=== PATIENT | female | born 1945 | race Caucasian/White ===

== ENCOUNTER 2016-09-18 07:15 | Emergency (ER) | payer MEDICARE, BC ==
[2016-09-18 07:48] VITALS: TEMP 97.4
[2016-09-18 11:40] VITALS: BP 150/72; PULSE 67; RESP 18; O2SAT 98
== END 2016-09-18 08:35 | disposition home or self-care (01) | DRG 880 ==
LOC: ED 07:15
DX: F41.9 Anxiety disorder, unspecified (principal)
CPT/HCPCS: 99282; 99283

== ENCOUNTER 2016-11-28 16:34 | Outpatient (CLI) | payer MEDICARE, BC ==
[2016-09-18 11:40] VITALS: O2SAT 98
== END 2016-11-28 16:35 | disposition home or self-care (01) | DRG 554 ==
LOC: CONVCARE 16:34
PROVIDERS: ATTEND Orthopaedic Surgery
DX: M17.11 Unilateral primary osteoarthritis, right knee (principal)
CPT/HCPCS: 73562

== ENCOUNTER 2016-12-05 05:26 | Inpatient (IN) | payer MEDICARE, BC ==
[2016-12-05] MEDS ORDERED: LACTATED RINGERS 1,000 ML IV ONE (06:00)
[2016-12-05] MEDS: SCOPOLAMINE 1.5MG PATCH TD SCH (06:22)
[2016-12-05] MEDS ORDERED: SODIUM CHLORIDE 20 ML 40 ML ONE (06:49)
[2016-12-05] MEDS ORDERED: LACTATED RINGERS 1,000 ML IV SCH (07:00)
[2016-12-05] MEDS ORDERED: METOCLOPRAMIDE HYDROCHLORIDE 5 MG/ML SOL ONE (07:24)
[2016-12-05] MEDS ORDERED: MORPHINE SULFATE 0.5 MG/ML SOL ONE (07:24)
[2016-12-05] MEDS ORDERED: DEXAMETHASONE 20 MG/5 ML (4 MG/ML SOL) ONE (07:24)
[2016-12-05] MEDS ORDERED: ONDANSETRON HCL 4 MG/2 ML SOL ONE (07:24)
[2016-12-05] MEDS ORDERED: PROPOFOL 500 MG/50 ML EMU IV ONE (07:24)
[2016-12-05] MEDS ORDERED: LIDOCAINE HCL 1% MPF SOL ONE (07:24)
[2016-12-05] MEDS ORDERED: MIDAZOLAM 2 MG/2 ML SOL ONE (07:24)
[2016-12-05] MEDS ORDERED: KETAMINE HYDROCHLORIDE 50 MG/ML SOL ONE (07:28)
[2016-12-05] MEDS ORDERED: GLYCOPYRROLATE 0.2 MG/ML SOL ONE (08:22)
[2016-12-05] MEDS: CEFAZOLIN SODIUM 1 GM PDS ONE ×2 (08:25→08:42)
[2016-12-05] MEDS ORDERED: EPHEDRINE SULFATE 50 MG/ML SOL ONE (08:36)
[2016-12-05] MEDS: BUPIVACAINE LIPOSOME 20 ML SUS ONE ×2 (09:09→09:42)
[2016-12-05] MEDS ORDERED: SODIUM CHLORIDE 0.9% FLUSH 10 ML SOL IV ONE ×2 (09:09→09:42)
[2016-12-05] MEDS ORDERED: PROPOFOL 10 MG/ML EMU IV ONE ×2 (09:28→10:03)
[2016-12-05] MEDS: TRANEXAMIC ACID 100 MG/ML SOL ONE ×2 (09:44→10:03)
[2016-12-05] MEDS ORDERED: ONDANSETRON 4 MG ODT BU PRN (09:52)
[2016-12-05] MEDS ORDERED: BISACODYL 10 MG SUP PR PRN (09:52)
[2016-12-05] MEDS ORDERED: MAGNESIUM HYDROXIDE 30 ML SUS PO PRN (09:52)
[2016-12-05] MEDS ORDERED: MORPHINE SULFATE 10 MG/ML SOL IM PRN (09:52)
[2016-12-05] MEDS ORDERED: FLEET ENEMA PR PRN (09:52)
[2016-12-05] MEDS ORDERED: DIPHENHYDRAMINE 50 MG/ML SOL IV PRN (09:52)
[2016-12-05] MEDS ORDERED: SODIUM CHLORIDE 0.9% 500 ML 500 ML IV PRN (09:52)
[2016-12-05] MEDS ORDERED: ONDANSETRON HCL 4 MG/2 ML SOL IV PRN (09:52)
[2016-12-05] MEDS ORDERED: ALBUTEROL HFA 60 PUFF/INHALER INH PRN (11:00)
[2016-12-05] MEDS: SODIUM CHLORIDE 0.9% FLUSH 10 ML SOL IV SCH ×2 (12:14→19:25)
[2016-12-05] MEDS: DEXTROSE/SALINE 0.45% 1,000 ML IV SCH ×2 (12:28→22:23)
[2016-12-05] MEDS: ACETAMINOPHEN 500 MG 500 MG TAB PO SCH ×3 (12:29→20:25)
[2016-12-05] MEDS: NICOTINE 7 MG PATCH TD SCH (14:32)
[2016-12-05] MEDS: CEFAZOLIN (PREMIX) 1 GM 1 GM/50 ML SOL IV SCH (15:42)
[2016-12-05] MEDS: OXYCODONE HYDROCHLORIDE 5 MG TAB PO PRN ×2 (16:44→21:48)
[2016-12-05] MEDS: HYDRALAZINE HYDROCHLORIDE 10 MG TAB PO SCH (20:24)
[2016-12-05] MEDS: SIMVASTATIN 20 MG TAB PO SCH (20:25)
[2016-12-05] MEDS: SERTRALINE HYDROCHLORIDE 50 MG TAB PO SCH (20:25)
[2016-12-05] MEDS: SENNOSIDES A AND B 8.6 MG TAB PO SCH (20:25)
[2016-12-06] MEDS: CEFAZOLIN (PREMIX) 1 GM 1 GM/50 ML SOL IV SCH (00:06)
[2016-12-06] MEDS: SODIUM CHLORIDE 0.9% FLUSH 10 ML SOL IV SCH ×3 (01:17→17:58)
[2016-12-06] MEDS: OXYCODONE HYDROCHLORIDE 5 MG TAB PO PRN ×2 (04:02→05:58)
[2016-12-06 07:37] LABS: MEAN CORPUSCULAR HGB CONC 36.8 gm/dl (32.0-36.0)
[2016-12-06] MEDS ORDERED: HYDROXYZINE PAMOATE 25 MG CAPSULE PO PRN (08:09)
[2016-12-06] MEDS: DEXTROSE/SALINE 0.45% 1,000 ML IV SCH (08:52)
[2016-12-06] MEDS: APAP/HYDROCODONE 325/5 TAB PO PRN ×4 (08:52→21:31)
[2016-12-06] MEDS: LOSARTAN POTASSIUM 50 MG TAB PO SCH (08:52)
[2016-12-06] MEDS: POTASSIUM CHLORIDE 10 MEQ TER PO SCH (08:53)
[2016-12-06] MEDS: HYDROCHLOROTHIAZIDE 25 MG TAB PO SCH (08:53)
[2016-12-06] MEDS: MULTIVITAMIN2 1 EA TAB PO SCH (08:53)
[2016-12-06] MEDS: CALCIUM CARBONATE 500 MG TAB PO SCH (08:53)
[2016-12-06] MEDS: PANTOPRAZOLE SODIUM 40 MG ECT PO SCH (08:53)
[2016-12-06] MEDS: CYANOCOBALAMIN 1000 MCG TAB PO SCH (08:53)
[2016-12-06] MEDS: CHOLECALCIFEROL 1,000 IU TAB PO SCH (08:54)
[2016-12-06] MEDS ORDERED: RIVAROXABAN 10 MG TAB PO SCH (09:00)
[2016-12-06] MEDS: TRIAMCINOLONE 0.1% CREAM CRE TOP SCH ×3 (09:05→21:28)
[2016-12-06] MEDS: HYDRALAZINE HYDROCHLORIDE 10 MG TAB PO SCH ×2 (09:05→21:27)
[2016-12-06] MEDS: DIAZEPAM 5 MG TAB PO PRN ×2 (10:41→18:01)
[2016-12-06] MEDS: NICOTINE 7 MG PATCH TD SCH (13:02)
[2016-12-06] MEDS: ALUMINUM/MAGNESIUM 30 ML SUS PO PRN ×2 (14:46→18:01)
[2016-12-06] MEDS: SENNOSIDES A AND B 8.6 MG TAB PO SCH (21:29)
[2016-12-06] MEDS: SERTRALINE HYDROCHLORIDE 50 MG TAB PO SCH (21:30)
[2016-12-06] MEDS: SIMVASTATIN 20 MG TAB PO SCH (21:30)
[2016-12-07] MEDS: SODIUM CHLORIDE 0.9% FLUSH 10 ML SOL IV SCH ×4 (03:00→18:51)
[2016-12-07] MEDS: APAP/HYDROCODONE 325/5 TAB PO PRN ×4 (03:25→20:30)
[2016-12-07] MEDS: DIAZEPAM 5 MG TAB PO PRN ×2 (06:41→14:09)
[2016-12-07] MEDS: HYDROMORPHONE 1 MG/ML SYRINGE IV PRN (07:17)
[2016-12-07 07:22] LABS: MEAN CORPUSCULAR HGB CONC 38.3 gm/dl (32.0-36.0)
[2016-12-07 07:34] LABS: POTASSIUM 3.3 mMol/L (3.5-5.1)
[2016-12-07] MEDS: HYDRALAZINE HYDROCHLORIDE 10 MG TAB PO SCH ×2 (08:49→20:30)
[2016-12-07] MEDS: LOSARTAN POTASSIUM 50 MG TAB PO SCH (08:50)
[2016-12-07] MEDS: CALCIUM CARBONATE 500 MG TAB PO SCH (08:51)
[2016-12-07] MEDS: TRIAMCINOLONE 0.1% CREAM CRE TOP SCH ×3 (08:51→20:31)
[2016-12-07] MEDS: CYANOCOBALAMIN 1000 MCG TAB PO SCH (08:52)
[2016-12-07] MEDS: PANTOPRAZOLE SODIUM 40 MG ECT PO SCH (08:52)
[2016-12-07] MEDS: MULTIVITAMIN2 1 EA TAB PO SCH (08:52)
[2016-12-07] MEDS: CHOLECALCIFEROL 1,000 IU TAB PO SCH (08:52)
[2016-12-07] MEDS: HYDROCHLOROTHIAZIDE 25 MG TAB PO SCH (08:55)
[2016-12-07] MEDS: POTASSIUM CHLORIDE 10 MEQ TER PO SCH ×3 (08:55→12:26)
[2016-12-07 10:12] LABS: UNIT TYPE O POSITIVE
[2016-12-07 10:13] LABS: UNIT TYPE O POSITIVE
[2016-12-07 10:14] LABS: UNIT TYPE O POSITIVE
[2016-12-07 10:15] LABS: UNIT TYPE O POSITIVE
[2016-12-07] MEDS ORDERED: ALBUTEROL NEB SOL 2.5MG/3ML 1 VIAL SOL NEB PRN (13:35)
[2016-12-07] MEDS: NICOTINE 7 MG PATCH TD SCH (14:10)
[2016-12-07] MEDS: ALBUTEROL/IPRATROPIUM 1 VIAL SOL INH SCH ×2 (14:29→18:51)
[2016-12-07 14:50] LABS: APPEARANCE,URINE Clear; BILIRUBIN,URINE NEGATIVE (NEGATIVE); COLOR,URINE Light yellow; GLUCOSE, URINE (UA) NEGATIVE (NEGATIVE); KETONES,URINE NEGATIVE (NEGATIVE); LEUKOCYTE ESTERASE ,URINE NEGATIVE (NEGATIVE); NITRATE,URINE NEGATIVE (NEGATIVE); OCCULT BLOOD,URINE 1+ (NEG-TRACE); UROBILINOGEN,URINE 0.2 (0.2-1.0 EU)
[2016-12-07 15:00] LABS: RBC,URINE 0-4 (0-3AV/HPF); WBC,URINE 0-2 (0-5AV/HPF)
[2016-12-07] MEDS ORDERED: FUROSEMIDE 20 MG TAB ONE (16:17)
[2016-12-07] MEDS ORDERED: FUROSEMIDE 20 MG TAB PO ONE (16:30)
[2016-12-07] MEDS: SENNOSIDES A AND B 8.6 MG TAB PO SCH (20:32)
[2016-12-07] MEDS: SIMVASTATIN 20 MG TAB PO SCH (20:32)
[2016-12-07] MEDS: SERTRALINE HYDROCHLORIDE 50 MG TAB PO SCH (20:33)
[2016-12-08] MEDS: ALBUTEROL/IPRATROPIUM 1 VIAL SOL INH SCH ×5 (00:05→20:34)
[2016-12-08] MEDS: APAP/HYDROCODONE 325/5 TAB PO PRN ×4 (00:15→20:35)
[2016-12-08] MEDS: SODIUM CHLORIDE 0.9% FLUSH 10 ML SOL IV SCH ×3 (05:27→20:10)
[2016-12-08] MEDS: SCOPOLAMINE 1.5MG PATCH TD SCH (06:17)
[2016-12-08] MEDS ORDERED: SODIUM CHLORIDE 20 ML 40 ML ONE (06:45)
[2016-12-08] MEDS ORDERED: BUPIVACAINE LIPOSOME 20 ML SUS ONE (06:45)
[2016-12-08] MEDS ORDERED: TRANEXAMIC ACID 100 MG/ML SOL ONE (06:45)
[2016-12-08 06:58] LABS: CALCIUM 8.8 mg/dl (8.5-10.1)
[2016-12-08] MEDS ORDERED: PROPOFOL 10 MG/ML EMU IV ONE (07:05)
[2016-12-08] MEDS ORDERED: ONDANSETRON HCL 4 MG/2 ML SOL ONE (07:06)
[2016-12-08] MEDS ORDERED: DEXAMETHASONE 20 MG/5 ML (4 MG/ML SOL) ONE (07:06)
[2016-12-08] MEDS ORDERED: LIDOCAINE HCL 1% MPF SOL ONE (07:06)
[2016-12-08] MEDS ORDERED: FENTANYL 100MCG/2ML SOL ONE ×4 (07:08→11:16)
[2016-12-08] MEDS ORDERED: CEFAZOLIN SODIUM 1 GM PDS ONE ×3 (07:17→19:10)
[2016-12-08] MEDS ORDERED: EPHEDRINE SULFATE 50 MG/ML SOL ONE (08:08)
[2016-12-08] MEDS ORDERED: NEOSTIGMINE METHYLSULFATE 1 MG/ML SOL ONE (08:25)
[2016-12-08] MEDS ORDERED: GLYCOPYRROLATE 0.2 MG/ML SOL ONE (08:25)
[2016-12-08] MEDS ORDERED: HYDROMORPHONE 1 MG/ML SYRINGE ONE (08:30)
[2016-12-08] MEDS ORDERED: CEFAZOLIN SODIUM 1 GM PDS 2 GM in SODIUM CHLORIDE 0.9% 100 ML 100 ML IV SCH (08:30)
[2016-12-08] MEDS ORDERED: SODIUM CHLORIDE 0.9% FLUSH 10 ML SOL IV ONE (10:02)
[2016-12-08] MEDS ORDERED: LABETALOL HYDROCHLORIDE 5 MG/ML SOL IV ONE (10:11)
[2016-12-08] MEDS ORDERED: CEFAZOLIN SODIUM 1 GM PDS 1 GM in SODIUM CHLORIDE 0.9% 100 ML 100 ML IV SCH (10:30)
[2016-12-08] MEDS ORDERED: KETOROLAC TROMETHAMINE 30 MG/ML SOL ONE (11:01)
[2016-12-08] MEDS: DEXTROSE/SALINE 0.45/KCL 20MEQ 1,000 ML/1,000 ML SOL IV SCH ×2 (12:35→23:09)
[2016-12-08] MEDS: HYDRALAZINE HYDROCHLORIDE 10 MG TAB PO SCH ×2 (12:53→20:36)
[2016-12-08] MEDS: LOSARTAN POTASSIUM 50 MG TAB PO SCH (12:54)
[2016-12-08] MEDS: CALCIUM CARBONATE 500 MG TAB PO SCH (12:57)
[2016-12-08] MEDS: PANTOPRAZOLE SODIUM 40 MG ECT PO SCH (12:57)
[2016-12-08] MEDS: POTASSIUM CHLORIDE 10 MEQ TER PO SCH (12:57)
[2016-12-08] MEDS: MULTIVITAMIN2 1 EA TAB PO SCH (12:57)
[2016-12-08] MEDS: CHOLECALCIFEROL 1,000 IU TAB PO SCH (12:58)
[2016-12-08] MEDS: CYANOCOBALAMIN 1000 MCG TAB PO SCH (12:58)
[2016-12-08] MEDS: TRIAMCINOLONE 0.1% CREAM CRE TOP SCH ×3 (12:59→20:37)
[2016-12-08] MEDS: HYDROCHLOROTHIAZIDE 25 MG TAB PO SCH (13:01)
[2016-12-08] MEDS: DIAZEPAM 5 MG TAB PO PRN ×2 (13:02→20:35)
[2016-12-08] MEDS: NICOTINE 7 MG PATCH TD SCH (13:08)
[2016-12-08] MEDS ORDERED: SODIUM CHLORIDE 0.9% 100 ML 100 ML IV ONE (19:11)
[2016-12-08] MEDS: SIMVASTATIN 20 MG TAB PO SCH (20:38)
[2016-12-08] MEDS: SENNOSIDES A AND B 8.6 MG TAB PO SCH (20:38)
[2016-12-08] MEDS: SERTRALINE HYDROCHLORIDE 50 MG TAB PO SCH (20:39)
[2016-12-09] MEDS ORDERED: CEFAZOLIN SODIUM 1 GM PDS 1 GM in SODIUM CHLORIDE 0.9% 100 ML 100 ML IV SCH (00:30)
[2016-12-09] MEDS: APAP/HYDROCODONE 325/5 TAB PO PRN ×5 (01:07→19:42)
[2016-12-09] MEDS: ALBUTEROL/IPRATROPIUM 1 VIAL SOL INH SCH ×4 (01:10→19:59)
[2016-12-09] MEDS: HYDROMORPHONE 1 MG/ML SYRINGE IV PRN ×3 (01:44→10:00)
[2016-12-09] MEDS: SODIUM CHLORIDE 0.9% FLUSH 10 ML SOL IV SCH ×5 (01:48→20:14)
[2016-12-09] MEDS ORDERED: CEFAZOLIN SODIUM 1 GM PDS ONE ×3 (03:57→18:56)
[2016-12-09] MEDS ORDERED: SODIUM CHLORIDE 0.9% 100 ML 100 ML IV ONE ×3 (03:57→18:56)
[2016-12-09] MEDS: CEFAZOLIN SODIUM 1 GM PDS 1 GM in SODIUM CHLORIDE 0.9% 100 ML 100 ML IV SCH ×3 (04:04→19:25)
[2016-12-09] MEDS: DIAZEPAM 5 MG TAB PO PRN ×2 (04:07→19:56)
[2016-12-09 07:23] LABS: BASOPHILS % (AUTO) 1 % (0-3); EOSINOPHILS % (AUTO) 1 % (0-9); HEMATOCRIT 26 % (35-47); MEAN CORPUSCULAR HGB CONC 35.7 gm/dl (32.0-36.0); MEAN CORPUSCULAR VOLUME 82 fL (81-99); MONOCYTES % (AUTO) 10.7 % (0-12); NEUTROPHILS % (AUTO) 68.7 % (37-80)
[2016-12-09 07:33] LABS: CALCIUM 7.8 mg/dl (8.5-10.1)
[2016-12-09] MEDS: HYDRALAZINE HYDROCHLORIDE 10 MG TAB PO SCH ×2 (08:37→20:01)
[2016-12-09] MEDS: CYANOCOBALAMIN 1000 MCG TAB PO SCH (08:37)
[2016-12-09] MEDS: CALCIUM CARBONATE 500 MG TAB PO SCH (08:38)
[2016-12-09] MEDS: POTASSIUM CHLORIDE 10 MEQ TER PO SCH (08:38)
[2016-12-09] MEDS: PANTOPRAZOLE SODIUM 40 MG ECT PO SCH (08:38)
[2016-12-09] MEDS: MULTIVITAMIN2 1 EA TAB PO SCH (08:38)
[2016-12-09] MEDS: LOSARTAN POTASSIUM 50 MG TAB PO SCH (08:39)
[2016-12-09] MEDS: RIVAROXABAN 10 MG TAB PO SCH (08:40)
[2016-12-09] MEDS: CHOLECALCIFEROL 1,000 IU TAB PO SCH (08:40)
[2016-12-09] MEDS: HYDROCHLOROTHIAZIDE 25 MG TAB PO SCH (08:41)
[2016-12-09] MEDS: TRIAMCINOLONE 0.1% CREAM CRE TOP SCH ×3 (08:42→20:44)
[2016-12-09] MEDS: NICOTINE 7 MG PATCH TD SCH (15:16)
[2016-12-09] MEDS: SENNOSIDES A AND B 8.6 MG TAB PO SCH (20:02)
[2016-12-09] MEDS: SIMVASTATIN 20 MG TAB PO SCH (20:03)
[2016-12-09] MEDS: SERTRALINE HYDROCHLORIDE 50 MG TAB PO SCH (20:04)
[2016-12-10] MEDS: ALBUTEROL/IPRATROPIUM 1 VIAL SOL INH SCH ×4 (01:53→20:12)
[2016-12-10] MEDS: APAP/HYDROCODONE 325/5 TAB PO PRN ×4 (02:05→20:03)
[2016-12-10] MEDS: ALUMINUM/MAGNESIUM 30 ML SUS PO PRN (02:05)
[2016-12-10] MEDS: SODIUM CHLORIDE 0.9% FLUSH 10 ML SOL IV SCH ×3 (02:15→20:01)
[2016-12-10] MEDS: CEFAZOLIN SODIUM 1 GM PDS 1 GM in SODIUM CHLORIDE 0.9% 100 ML 100 ML IV SCH (02:16)
[2016-12-10 07:18] LABS: CALCIUM 8.5 mg/dl (8.5-10.1)
[2016-12-10 07:19] LABS: BASOPHILS % (AUTO) 1 % (0-3); EOSINOPHILS % (AUTO) 1 % (0-9); HEMATOCRIT 26 % (35-47); MEAN CORPUSCULAR HGB CONC 36.6 gm/dl (32.0-36.0); MEAN CORPUSCULAR VOLUME 82 fL (81-99); MONOCYTES % (AUTO) 9.8 % (0-12); NEUTROPHILS % (AUTO) 70.2 % (37-80)
[2016-12-10] MEDS: HYDRALAZINE HYDROCHLORIDE 10 MG TAB PO SCH ×2 (08:52→20:02)
[2016-12-10] MEDS: LOSARTAN POTASSIUM 50 MG TAB PO SCH (08:54)
[2016-12-10] MEDS: HYDROCHLOROTHIAZIDE 25 MG TAB PO SCH (08:55)
[2016-12-10] MEDS: POTASSIUM CHLORIDE 10 MEQ TER PO SCH (08:56)
[2016-12-10] MEDS: TRIAMCINOLONE 0.1% CREAM CRE TOP SCH ×3 (08:56→20:01)
[2016-12-10] MEDS: CALCIUM CARBONATE 500 MG TAB PO SCH (08:57)
[2016-12-10] MEDS: PANTOPRAZOLE SODIUM 40 MG ECT PO SCH (08:57)
[2016-12-10] MEDS: MULTIVITAMIN2 1 EA TAB PO SCH (08:57)
[2016-12-10] MEDS: CHOLECALCIFEROL 1,000 IU TAB PO SCH (08:58)
[2016-12-10] MEDS: CYANOCOBALAMIN 1000 MCG TAB PO SCH (08:58)
[2016-12-10] MEDS: RIVAROXABAN 10 MG TAB PO SCH (09:09)
[2016-12-10] MEDS ORDERED: SODIUM CHLORIDE 0.9% 100 ML 100 ML IV ONE (09:44)
[2016-12-10] MEDS ORDERED: CEFAZOLIN SODIUM 1 GM PDS ONE (09:44)
[2016-12-10] MEDS ORDERED: CEFAZOLIN (PREMIX) 1 GM 1 GM/50 ML SOL IV ONE (10:00)
[2016-12-10] MEDS ORDERED: DIAZEPAM 5 MG TAB ONE (10:59)
[2016-12-10] MEDS: DIAZEPAM 5 MG TAB PO PRN (11:01)
[2016-12-10] MEDS: NICOTINE 7 MG PATCH TD SCH (13:57)
[2016-12-10] MEDS: SERTRALINE HYDROCHLORIDE 50 MG TAB PO SCH (20:01)
[2016-12-10] MEDS: SIMVASTATIN 20 MG TAB PO SCH (20:01)
[2016-12-10] MEDS: SENNOSIDES A AND B 8.6 MG TAB PO SCH (20:02)
[2016-12-11] MEDS: ALBUTEROL/IPRATROPIUM 1 VIAL SOL INH SCH ×4 (01:12→21:00)
[2016-12-11] MEDS: SODIUM CHLORIDE 0.9% FLUSH 10 ML SOL IV SCH ×3 (01:12→18:56)
[2016-12-11] MEDS: APAP/HYDROCODONE 325/5 TAB PO PRN ×4 (01:28→18:56)
[2016-12-11 07:06] LABS: BASOPHILS % (AUTO) 1 % (0-3); EOSINOPHILS % (AUTO) 2 % (0-9); HEMATOCRIT 26 % (35-47); MEAN CORPUSCULAR HGB CONC 36.1 gm/dl (32.0-36.0); NEUTROPHILS % (AUTO) 61.5 % (37-80)
[2016-12-11 07:12] LABS: MEAN CORPUSCULAR VOLUME 81 fL (81-99)
[2016-12-11] MEDS: MULTIVITAMIN2 1 EA TAB PO SCH (09:09)
[2016-12-11] MEDS: POTASSIUM CHLORIDE 10 MEQ TER PO SCH (09:09)
[2016-12-11] MEDS: CALCIUM CARBONATE 500 MG TAB PO SCH (09:09)
[2016-12-11] MEDS: RIVAROXABAN 10 MG TAB PO SCH (09:10)
[2016-12-11] MEDS: PANTOPRAZOLE SODIUM 40 MG ECT PO SCH (09:10)
[2016-12-11] MEDS: LOSARTAN POTASSIUM 50 MG TAB PO SCH (09:10)
[2016-12-11] MEDS: TRIAMCINOLONE 0.1% CREAM CRE TOP SCH ×3 (09:11→20:57)
[2016-12-11] MEDS: CHOLECALCIFEROL 1,000 IU TAB PO SCH (09:11)
[2016-12-11] MEDS: HYDROCHLOROTHIAZIDE 25 MG TAB PO SCH (09:11)
[2016-12-11] MEDS: CYANOCOBALAMIN 1000 MCG TAB PO SCH (09:12)
[2016-12-11] MEDS: HYDRALAZINE HYDROCHLORIDE 10 MG TAB PO SCH ×2 (09:13→20:58)
[2016-12-11] MEDS: DIAZEPAM 5 MG TAB PO PRN ×2 (09:15→15:13)
[2016-12-11] MEDS: NICOTINE 7 MG PATCH TD SCH (13:21)
[2016-12-11] MEDS: SENNOSIDES A AND B 8.6 MG TAB PO SCH (20:56)
[2016-12-11] MEDS: SIMVASTATIN 20 MG TAB PO SCH (20:56)
[2016-12-11] MEDS: SERTRALINE HYDROCHLORIDE 50 MG TAB PO SCH (20:56)
[2016-12-12] MEDS: ALBUTEROL/IPRATROPIUM 1 VIAL SOL INH SCH ×2 (02:50→09:04)
[2016-12-12] MEDS: SODIUM CHLORIDE 0.9% FLUSH 10 ML SOL IV SCH (02:55)
[2016-12-12] MEDS: APAP/HYDROCODONE 325/5 TAB PO PRN ×2 (03:54→10:08)
[2016-12-12 07:28] LABS: ALBUMIN 2.5 gm/dl (3.4-5.0); CALCIUM 8.6 mg/dl (8.5-10.1)
[2016-12-12 07:29] LABS: POTASSIUM 4.1 mMol/L (3.5-5.1)
[2016-12-12 07:46] VITALS: BP 130/76; TEMP 97.8
[2016-12-12 07:46] LABS: HEMOGLOBIN A1C 5.6 % (4.8-6.0)
[2016-12-12] MEDS: HYDRALAZINE HYDROCHLORIDE 10 MG TAB PO SCH (08:38)
[2016-12-12] MEDS ORDERED: ALUMINUM/MAGNESIUM 30 ML SUS PO PRN (08:41)
[2016-12-12] MEDS: LOSARTAN POTASSIUM 50 MG TAB PO SCH (08:44)
[2016-12-12] MEDS: PANTOPRAZOLE SODIUM 40 MG ECT PO SCH (08:45)
[2016-12-12] MEDS: POTASSIUM CHLORIDE 10 MEQ TER PO SCH (08:45)
[2016-12-12] MEDS: HYDROCHLOROTHIAZIDE 25 MG TAB PO SCH (08:45)
[2016-12-12] MEDS: CALCIUM CARBONATE 500 MG TAB PO SCH (08:45)
[2016-12-12] MEDS: CHOLECALCIFEROL 1,000 IU TAB PO SCH (08:45)
[2016-12-12] MEDS: MULTIVITAMIN2 1 EA TAB PO SCH (08:45)
[2016-12-12] MEDS: CYANOCOBALAMIN 1000 MCG TAB PO SCH (08:46)
[2016-12-12] MEDS: RIVAROXABAN 10 MG TAB PO SCH (08:46)
[2016-12-12] MEDS: TRIAMCINOLONE 0.1% CREAM CRE TOP SCH (08:47)
[2016-12-12 09:04] VITALS: RESP 20
[2016-12-12 09:12] VITALS: PULSE 68; O2SAT 99
== END 2016-12-12 11:50 | disposition swing bed (61) | DRG 467 ==
LOC: ACUTE CARE 05:26
PROVIDERS: ADMIT Orthopaedic Surgery; ATTEND Orthopaedic Surgery
PROC: 0SRC0J9 Replacement of Right Knee Joint with Synthetic Substitute, Cemented, Open Approach (ICD-10-PCS; principal; 2016-12-05 08:00)
PROC: 0SPV0JZ Removal of Synthetic Substitute from Right Knee Joint, Tibial Surface, Open Approach (ICD-10-PCS; 2016-12-08)
PROC: 0SRV0J9 Replacement of Right Knee Joint, Tibial Surface with Synthetic Substitute, Cemented, Open Approach (ICD-10-PCS; 2016-12-08)
PROC: 0SPC09Z Removal of Liner from Right Knee Joint, Open Approach (ICD-10-PCS; 2016-12-08)
PROC: 0SUV09Z Supplement Right Knee Joint, Tibial Surface with Liner, Open Approach (ICD-10-PCS; 2016-12-08)
DX: M17.11 Unilateral primary osteoarthritis, right knee (principal); D62 Acute posthemorrhagic anemia; J44.9 Chronic obstructive pulmonary disease, unspecified; T84.022A Instability of internal right knee prosthesis, initial encounter; Z96.651 Presence of right artificial knee joint; R33.9 Retention of urine, unspecified; I10 Essential (primary) hypertension; F17.200 Nicotine dependence, unspecified, uncomplicated; S83.411A Sprain of medial collateral ligament of right knee, initial encounter; E87.6 Hypokalemia; M89.8X6 Other specified disorders of bone, lower leg
CPT/HCPCS: 36415; 51798; 71020; 73560; 77073; 80048; 80053; 81001; 83036; 83880; 84132; 85025; 85027; 85610; 85730; 86920; 94150; 94640; 94664; 99070; J0330; J0690; J1100; J1200; J1885; J2250; J2274; J2405; J2710; J2765; J3010; J7603; J7620; J7643; P9016; A4450; A6232; J1170; J2001; J2704; L1830; Q3014

== ENCOUNTER 2017-01-23 10:50 | Outpatient (CLI) | payer MEDICARE, BC ==
[2016-12-18 14:25] VITALS: O2SAT 96
== END 2017-01-23 10:51 | disposition home or self-care (01) | DRG 561 ==
LOC: CONVCARE 10:50
PROVIDERS: ATTEND Orthopaedic Surgery
DX: Z47.1 Aftercare following joint replacement surgery (principal); Z96.651 Presence of right artificial knee joint; S83.411D Sprain of medial collateral ligament of right knee, subsequent encounter
CPT/HCPCS: 73562

== ENCOUNTER 2017-12-25 13:52 | Outpatient (CLI) | payer MEDICARE, BC ==
[2016-12-18 14:25] VITALS: O2SAT 96
== END 2017-12-25 13:53 | disposition home or self-care (01) | DRG 561 ==
LOC: CONVCARE 13:52
PROVIDERS: ATTEND Orthopaedic Surgery
DX: Z47.1 Aftercare following joint replacement surgery (principal); Z96.651 Presence of right artificial knee joint; M76.62 Achilles tendinitis, left leg
CPT/HCPCS: 73562; 73650